=== PATIENT | female | born 1980 | race Caucasian/White ===

== ENCOUNTER 2020-08-19 18:05 | Emergency (ER) | payer OTHER, SELFPAY ==
[2020-08-19 18:16] VITALS: BP 181/101; PULSE 112; RESP 18; TEMP 36.6; O2SAT 100; BMI 37.4
--- NOTE | 2020-08-19 18:31 | DI.RAD.S_ITS ---
PROCEDURE: XR TIBIA FUBULA RT 2V INDICATIONS: trauma TECHNIQUE: 2 views of the tibia and fibula were acquired. COMPARISON: [facility], CR, XR ANKLE RT MIN 3V, 08/19/2020, 18:26. FINDINGS: Bones: A trimalleolar fracture can again be seen. No fractures of the more proximal tibia and fibula can be seen. Soft tissues: No suspicious soft tissue calcifications or masses. IMPRESSION: Trimalleolar fracture, without additional fractures seen involving the tibia and fibula more proximally. Dictated by: Volodymyr Vera M.D. on 08/19/2020 at 17:55 Approved by: Volodymyr Vera M.D. on 08/19/2020 at 17:56
--- NOTE | 2020-08-19 18:42 | DI.RAD.S_ITS ---
PROCEDURE: XR ANKLE RT MIN 3V INDICATIONS: trauma TECHNIQUE: 3 views of the ankle were acquired. COMPARISON: None. FINDINGS: Bones: Comminuted displaced distal medial malleolar, lateral malleolar, and posterior malleolar fractures are noted. The talar dome appears intact. The calcaneus and visualized portions of the midfoot appear intact. Soft tissues: There is a tibiotalar joint effusion and generalized soft tissue swelling. IMPRESSION: Displaced comminuted trimalleolar fracture. Dictated by: Katie Ortiz M.D. on 08/19/2020 at 18:52 Approved by: Katie Ortiz M.D. on 08/19/2020 at 18:53
--- NOTE | 2020-08-19 19:07 | ED.LOWEXIN ---
HPI - Extremity Injury (Lower) General Chief Complaint: Extremity Injury, Lower Stated Complaint: states she broke her right foot Time Seen by Provider: 08/19/20 19:05 Source: patient and family Mode of arrival: Wheelchair Limitations: no limitations History of Present Illness HPI Narrative: 39-year-old woman with a hit the of kidney stones presents with right ankle pain after miss stepping off a deck last night. Immediate pain was noted with some swelling. She was on [facility] on vacation, lives in [place] or in. Came over on the [facility] for further evaluation today Related Data Previous Rx's Medication Instructions Recorded oxycodone-acetaminophen 1 - 2 tab PO Q6H PRN #20 tab 08/19/20 Allergies Allergy/AdvReac Type Severity Reaction Status Date / Time Sulfa (Sulfonamide Allergy Verified 08/19/20 18:16 Antibiotics) Review of Systems Review of Systems Narrative: Pertinent positive and negative findings as per HPI Remainder of review of systems is otherwise unremarkable for Constitutional: Fevers, chills, weakness ENT: No sore throat, neck pain, ear pain CV: Chest pain, palpitations, dyspnea on exertion Respiratory: Cough, wheeze, dyspnea GI: Nausea, vomiting, diarrhea, change in bowel habits, black or bloody stools : Dysuria, hematuria, flank pain MS: Muscle weakness, numbness, joint swelling or warmth Patient History Medical History Healthy adult (Acute) Surgical History History of section (Acute) Social History Smoking Status: Never smoker Smoking Status: Never smoker alcohol intake frequency: holidays/special occasions only Substance Use Type: does not use Exam Narrative Exam Narrative: General: Alert appropriate in no acute distress Respiratory: Able to speak in full sentences, no obvious respiratory distress Skin: No obvious rashes, warm and dry Neurologic: Grossly intact no obvious asymmetries or abnormalities Psych, appropriate insight and affect, cooperative Extremity: Right ankle is swollen slightly ecchymotic and tender to the touch. She is able to move her toes and dorsalis pedis and posterior tibialis pulses are palpable. There is no tenderness to the knee joint or proximal. Initial Vital Signs Initial Vital Signs: Vital Signs Temperature 97.8 F 08/19/20 18:16 Pulse Rate 112 H 08/19/20 18:16 Respiratory Rate 18 08/19/20 18:16 Blood Pressure 181/101 H 08/19/20 18:16 Pulse Oximetry 100 08/19/20 18:16 Procedures Orthopedic Splinting/Casting Right trimalleolar fracture: Side: right Lower Extremity Injury Location: ankle Lower Extremity Immobilizer: posterior splint and stirrup splint Other Orthopedic Equipment: crutches Post splinting neuro exam: intact Post splinting vascular exam: intact Placed by: Provider Course Orders Ordered: ED Orders 08/19/20 18:31 XR tibia fibula RT 2V Stat 08/19/20 18:42 XR ankle RT min 3V Stat Discontinued Medications Ibuprofen (Advil) 400 mg PO NOW ONE Stop: 08/19/20 19:23 Last Admin: 08/19/20 19:25 Dose: 400 mg Documented by: RMARTIN Oxycodone/Acetaminophen (Percocet 5/325) 1 tab PO NOW ONE Stop: 08/19/20 19:23 Last Admin: 08/19/20 19:25 Dose: 1 tab Documented by: RMEMILYIN Vital Signs Vital signs: Vital Signs - 8 hr 08/19/20 18:16 08/19/20 20:31 Temperature 97.8 F Pulse Rate 112 H 95 H Respiratory Rate 18 15 Blood Pressure 181/101 H 180/103 H Pulse Oximetry 100 98 MDM - Extremity Injury (Lower) Imaging Data ankle: Radiologist's Impression: FINDINGS: Bones: Comminuted displaced distal medial malleolar, lateral malleolar, and posterior malleolar fractures are noted. The talar dome appears intact. The calcaneus and visualized portions of the midfoot appear intact. Soft tissues: There is a tibiotalar joint effusion and generalized soft tissue swelling. IMPRESSION: Displaced comminuted trimalleolar fracture. Dictated by: Katie Ortiz M.D. on 08/19/2020 at 18:52 tib/fib: Radiologist's Impression: FINDINGS: Bones: A trimalleolar fracture can again be seen. No fractures of the more proximal tibia and fibula can be seen. Soft tissues: No suspicious soft tissue calcifications or masses. IMPRESSION: Trimalleolar fracture, without additional fractures seen involving the tibia and fibula more proximally. Dictated by: Volodymyr Vera M.D. on 08/19/2020 at 17:55 MDM Narrative Medical decision making narrative: 40-year-old woman who presents 24 hours after stepping off the last step of a deck and sustaining a right trimalleolar fracture with no other trauma. Care is reviewed with Dr. Long. Patient is safe for splinting pain control and discharged home with follow-up in the next couple of days with orthopedic surgery for definitive treatment of her fracture. She is cautioned about the importance of nonweightbearing. Splint is placed without complication. Pain was controlled with 400 mg of ibuprofen and Percocet. Prescription was written. She is safe for home discharge Discharge Plan Departure Patient Disposition: Home Clinical Impression: Closed trimalleolar fracture of ankle Qualifiers: Encounter type: initial encounter Laterality: right Qualified Code(s): S82.851A - Displaced trimalleolar fracture of right lower leg, initial encounter for closed fracture Discharge Date/Time: 08/19/20 20:33 Instructions: DI for Ankle Fracture Activity Restrictions/Additional Instructions: Thank you for coming in today You have a tri-malleolar ankle fracture. This is an unstable fracture and will need surgery. Please do not put any weight at all on the right ankle. Keep the splint that was placed in the emergency room in place until you are seen by the orthopedic surgeon We need to back to or again, please contact your family doctor for suggestions on the orthopedic surgeon to call. Using 400 mg of ibuprofen (2 [id number] pills) and 1 Tylenol every 6 hours can be very helpful in controlling pain. Using 400 mg of ibuprofen and and 1 or 2 Percocet simultaneously is helpful for severe pain. Keeping the leg elevated and ice on the outside of the splint will also help with pain control If you have additional problems or concerns prior to getting all the way to [place], please feel free to return to [facility]. I hope you heal quickly Prescriptions: New oxycodone-acetaminophen 5-325 mg tablet 1 - 2 tab PO Q6H PRN (Reason: pain) Qty: 20 RF: 0
[2020-08-19] MEDS: OXYCODONE/ACETAMINOPHEN 5/325 TABLET 1 TAB PO (19:25)
[2020-08-19] MEDS: IBUPROFEN 400 MG TABLET PO (19:25)
[2020-08-19 20:31] VITALS: BP 180/103; PULSE 95; RESP 15; O2SAT 98
== END 2020-08-19 20:33 | disposition home or self-care (01) ==
PROVIDERS: Emergency Provider Emergency Medicine
DX: S82.851A Displaced trimalleolar fracture of right lower leg, initial encounter for closed fracture (principal); W19.XXXA Unspecified fall, initial encounter
CPT/HCPCS: 73590; 73610; 99283